=== PATIENT | female | born 2000 | race Caucasian/White ===

== ENCOUNTER 2022-11-13 14:25 | Emergency (ER) | payer MEDICAID ==
[~2022-11-13] VITALS: Ht 170.2 cm; Wt 120.0 kg
[2022-11-13 14:34] VITALS: BP 134/80; PULSE 99; RESP 18; TEMP 97.9; O2SAT 99
[2022-11-13 15:51] LABS: URINE HCG NEGATIVE (NEG)
[2022-11-13 15:58] LABS: BILIRUBIN,URINE SMALL (Neg); CLARITY,URINE CLOUDY (Clear); COLOR,URINE YELLOW (Yellow); GLUCOSE, URINE NEGATIVE (Neg); KETONES,URINE TRACE mg/dl (Neg); LEUKOCYTE ESTERASE ,URINE NEGATIVE (Neg); NITRITES, URINE NEGATIVE (Neg); OCCULT BLOOD,URINE NEGATIVE (Neg); PH,URINE 6.5 (4.8-8.0); PROTEIN,URINE 100 mg/dl (Neg)
[2022-11-13 16:05] LABS: UA COLLECTION TYPE CLN CATCH MIDSTREAM
[2022-11-13 16:09] LABS: BACTERIA,URINE 2+ /HPF (Neg); MUCUS STRANDS MANY /LPF (Neg); RBC,URINE 0-2 /HPF (0-2); SQUAMOUS EPITHELIAL CELL,UR MANY /LPF (FEW); WBC,URINE 0-4 /HPF (0-4)
== END 2022-11-13 16:48 | disposition home or self-care (01) ==
LOC: ER 14:29
DX: M79.601 Pain in right arm (principal); R10.9 Unspecified abdominal pain; Z88.8 Allergy status to other drugs, medicaments and biological substances
CPT/HCPCS: 73130; 81001; 81025; 99284

== ENCOUNTER 2022-11-22 12:20 | Emergency (ER) | payer MEDICAID ==
[~2022-11-22] VITALS: Ht 167.6 cm; Wt 120.0 kg
[2022-11-22 12:33] VITALS: BP 138/70; PULSE 79; RESP 18; TEMP 97.8; O2SAT 98
[2022-11-22 13:14] LABS: URINE HCG NEGATIVE (NEG)
[2022-11-22 13:21] LABS: BILIRUBIN,URINE NEGATIVE (Neg); CLARITY,URINE CLEAR (Clear); COLOR,URINE STRAW (Yellow); GLUCOSE, URINE NEGATIVE (Neg); KETONES,URINE NEGATIVE (Neg); LEUKOCYTE ESTERASE ,URINE NEGATIVE (Neg); NITRITES, URINE NEGATIVE (Neg); OCCULT BLOOD,URINE NEGATIVE (Neg); PROTEIN,URINE NEGATIVE (Neg); UROBILINOGEN,URINE 0.2 E.U/dL (0.2-1.0)
[2022-11-22 13:51] LABS: UA COLLECTION TYPE CLN CATCH MIDSTREAM
[2022-11-22] MEDS ORDERED: ketorolac trometh inj. 60 MG/2 ML VIAL IM ONE (15:50)
[2022-11-22] MEDS ORDERED: IBUP-1984 PO (15:55)
== END 2022-11-22 16:33 | disposition home or self-care (01) ==
LOC: ER 12:21
DX: S23.3XXA Sprain of ligaments of thoracic spine, initial encounter (principal); Z88.1 Allergy status to other antibiotic agents; Z79.1 Long term (current) use of non-steroidal anti-inflammatories (NSAID); X58.XXXA Exposure to other specified factors, initial encounter; Y93.89 Activity, other specified; Y92.89 Other specified places as the place of occurrence of the external cause; Y99.8 Other external cause status
CPT/HCPCS: 81003; 81025; 99283

== ENCOUNTER 2023-02-19 17:44 | Emergency (ER) | payer MEDICAID ==
[~2023-02-19] VITALS: Ht 167.6 cm; Wt 109.1 kg
[2023-02-19 18:35] LABS: BASOPHILS # (AUTO) 0.1 X10'3 (0-0.2); BASOPHILS % (AUTO) 0.6 % (0-1); EOSINOPHILS # (AUTO) 0.1 X10'3 (0-0.9); EOSINOPHILS % (AUTO) 1.1 % (0-6); HEMATOCRIT 42.3 % (35.0-45.0); LYMPHOCYTES # (AUTO) 3.7 X10'3 (1.1-4.8); LYMPHOCYTES % (AUTO) 29.3 % (21-51); MEAN CORPUSCULAR HEMOGLOBIN 30.4 PG (27.0-31.0); MEAN CORPUSCULAR HGB CONC 35.4 g/dL (33.0-36.5); MEAN CORPUSCULAR VOLUME 85.8 FL (78-98); MEAN PLATELET VOLUME 7.6 FL (7.4-10.4); MONOCYTES # (AUTO) 0.8 X10'3 (0-0.9); MONOCYTES % (AUTO) 5.9 % (2-12); NEUTROPHILS % (AUTO) 63.1 % (42-75); PLATELET COUNT 598 X10'3 (140-440); RED BLOOD COUNT 4.92 X10'6 (4.20-5.60); RED CELL DISTRIBUTION WIDTH 13.8 % (11.5-14.5); WHITE BLOOD COUNT 12.6 X10'3 (4.5-11.0)
[2023-02-19 18:47] LABS: ALANINE AMINOTRANSFERASE 23 U/L (12-78); ALBUMIN 3.5 G/DL (3.4-5.0); ALBUMIN/GLOBULIN RATIO 0.8 (1.1-1.5); ALKALINE PHOSPHATASE 51 IU/L (46-116); ANION GAP 6 (8-16); ASPARTATE AMINO TRANSFERASE 15 U/L (10-37); BILIRUBIN,TOTAL 0.5 MG/DL (0.1-1.0); BLOOD UREA NITROGEN 9 MG/DL (7-18); BUN/CREATININE RATIO 13.4 (10.0-20.0); CHLORIDE 103 MMOL/L (99-107); CREATININE 0.67 MG/DL (0.40-0.90); ETHANOL < 10 MG/DL (<10); GLUCOSE 86 MG/DL (70-104); POTASSIUM 3.2 MMOL/L (3.5-5.1); SODIUM 137 MMOL/L (135-145); TOTAL CARBON DIOXIDE 27.9 MMOL/L (24-32); TOTAL PROTEIN 7.7 G/DL (6.4-8.2); eCRCL 124 ML/MIN; eGFR > 90 ML/MIN
--- NOTE | 2023-02-19 19:00 | NUR ---
Received patient to ED overflow room 25 at this time. Pleasant, calm and cooperative. Able to make needs known. Answered questions appropriately.
[2023-02-19 19:23] LABS: BILIRUBIN,URINE SMALL (Neg); CLARITY,URINE CLOUDY (Clear); COLOR,URINE YELLOW (Yellow); GLUCOSE, URINE NEGATIVE (Neg); KETONES,URINE NEGATIVE (Neg); LEUKOCYTE ESTERASE ,URINE NEGATIVE (Neg); NITRITES, URINE NEGATIVE (Neg); OCCULT BLOOD,URINE LARGE (Neg); PROTEIN,URINE NEGATIVE (Neg); UROBILINOGEN,URINE 0.2 E.U/dL (0.2-1.0)
[2023-02-19 19:24] LABS: URINE HCG NEGATIVE (NEG)
[2023-02-19 19:28] LABS: UA COLLECTION TYPE CLN CATCH MIDSTREAM
[2023-02-19 19:29] LABS: MUCUS STRANDS MANY /LPF (Neg); SQUAMOUS EPITHELIAL CELL,UR MANY /LPF (FEW)
[2023-02-19 19:30] LABS: BACTERIA,URINE 3+ /HPF (Neg); RBC,URINE 50-100 /HPF (0-2); WBC,URINE 0-4 /HPF (0-4)
[2023-02-19 19:44] LABS: URINE AMPHETAMINE SCREEN NEGATIVE (Neg); URINE BARBITUATE SCREEN NEGATIVE (Neg); URINE BENZODIAZEPINES SCREEN NEGATIVE (Neg); URINE CANNABINOID SCREEN POSITIVE (Neg); URINE COCAINE SCREEN NEGATIVE (Neg); URINE METHADONE SCREEN NEGATIVE (Neg); URINE OPIATE SCREEN NEGATIVE (Neg); URINE PHENCYCLIDINE SCREEN NEGATIVE (Neg)
--- NOTE | 2023-02-19 19:45 | NUR ---
Admit complete. Urine completed. Will continue to monitor.
[2023-02-19] MEDS ORDERED: BREX2TAB PO (20:05)
[2023-02-19] MEDS ORDERED: LAMO200T10 PO (20:05)
[2023-02-19] MEDS ORDERED: NORG1TAB12 PO (20:05)
[2023-02-19] MEDS ORDERED: ACET-1025 PO (20:05)
--- NOTE | 2023-02-19 21:28 | NUR ---
Patient resting in bed with eyes closed. Appears to be sleeping. Noted rise/fall of chest noted. Respirations even/nonlabored. Will continue to monitor.
[2023-02-19] MEDS ORDERED: LORazepam 1 MG tablet PO PRN (21:45)
[2023-02-19] MEDS ORDERED: acetaminophen 325mg tablet PO PRN (22:10)
[2023-02-19 22:48] LABS: THYROID STIMULATING HORMONE 0.64 ulU/ml (0.34-4.50)
[2023-02-20] MEDS ORDERED: acetaminophen 325mg tablet PO PRN (00:10)
--- NOTE | 2023-02-20 00:52 | NUR ---
Patient up to BR. Went back to sleep. Resting with eyes closed. Will continue to monitor.
--- NOTE | 2023-02-20 00:54 | NUR ---
Packet faxed to [facility].
--- NOTE | 2023-02-20 03:00 | NUR ---
Patient sleeping. No s/sx of distress. Will continue to monitor.
--- NOTE | 2023-02-20 05:10 | NUR ---
Patient got up to BR. VSS. Went back to sleep. Will continue to monitor.
--- NOTE | 2023-02-20 06:38 | NUR ---
Patient sleeping in bed. Respirations are even and unlabored.
[2023-02-20] MEDS ORDERED: lamoTRIgine 100mg tablet PO SCH ×2 (08:00)
[2023-02-20] MEDS ORDERED: NORGESTIMATE ETHINYL ESTRADIOL PO SCH (08:00)
--- NOTE | 2023-02-20 10:15 | NUR ---
[facility] released patient from [id number]. Patient's boyfriend came to take her home. Patient expressing anxiety, and overheard her talking to about getting disability. Security escorted patient out of facility.
[2023-02-20 10:21] VITALS: BP 118/76; PULSE 64; RESP 14; TEMP 98.2; O2SAT 97
== END 2023-02-20 10:23 | disposition home or self-care (01) ==
LOC: ER 17:44
DX: R45.851 Suicidal ideations (principal); Z88.1 Allergy status to other antibiotic agents; Z79.899 Other long term (current) drug therapy; Z20.822 Contact with and (suspected) exposure to COVID-19
CPT/HCPCS: 36415; 80053; 80305; 80320; 81001; 81025; 84443; 85025; 87811; 99285